=== PATIENT | female | born 1950 | race Caucasian/White ===

== ENCOUNTER 2024-04-22 07:00 | Day surgery (SDC) | payer MEDICARE, BC ==
[2024-04-17 14:36] LABS: BASOPHILS # (AUTO) 0.2 X10'3 (0-0.2); BASOPHILS % (AUTO) 1.9 % (0-1); EOSINOPHILS # (AUTO) 0.6 X10'3 (0-0.9); EOSINOPHILS % (AUTO) 6.3 % (0-6); LYMPHOCYTES # (AUTO) 2.3 X10'3 (1.1-4.8); LYMPHOCYTES % (AUTO) 24.6 % (21-51); MEAN CORPUSCULAR HEMOGLOBIN 31.1 PG (27.0-31.0); MEAN CORPUSCULAR HGB CONC 33.4 g/dL (33.0-36.5); MEAN CORPUSCULAR VOLUME 93.1 FL (78-98); MEAN PLATELET VOLUME 7.3 FL (7.4-10.4); MONOCYTES # (AUTO) 0.9 X10'3 (0-0.9); MONOCYTES % (AUTO) 9.5 % (2-12); NEUTROPHILS # (AUTO) 5.4 X10'3 (1.8-7.7); NEUTROPHILS % (AUTO) 57.7 % (42-75); PRE OP HEMATOCRIT 36.5 % (35.0-45.0); PRE OP HEMOGLOBIN 12.2 g/dL (12.0-16.0); PRE OP PLATELET COUNT 387 X10'3 (140-440); PRE OP WHITE BLOOD COUNT 9.3 10'3 (4.8-10.8); RED BLOOD COUNT 3.92 X10'6 (4.20-5.60); RED CELL DISTRIBUTION WIDTH 15.8 % (11.5-14.5)
[2024-04-17 14:51] LABS: ALBUMIN 3.1 G/DL (3.4-5.0); ALBUMIN/GLOBULIN RATIO 0.8 (1.1-1.5); ALKALINE PHOSPHATASE 94 IU/L (46-116); BLOOD UREA NITROGEN 24 MG/DL (7-18); BUN/CREATININE RATIO 19.5 (10.0-20.0); CHLORIDE 111 MMOL/L (99-107); CREATININE 1.23 MG/DL (0.40-0.90); PRE OP ALT 20 U/L (30-65); PRE OP ANION GAP 7 (8-16); PRE OP AST 16 U/L (10-37); PRE OP BILIRUB, TOTAL 0.5 MG/DL (0.0-1.0); PRE OP GLUCOSE 91 MG/DL (70-104); PRE OP POTASSIUM 4.3 MMOL/L (3.4-5.1); PRE OP SODIUM 145 MMOL/L (135-145); TOTAL CARBON DIOXIDE 27.2 MMOL/L (24-32); TOTAL PROTEIN 7.2 G/DL (6.4-8.2); eGFR 42 ML/MIN
[2024-04-22] VITALS (8 sets, daily range): BP systolic 124–153; BP diastolic 68–98; PULSE 65–83; RESP 12–17; TEMP 97.6; O2SAT 98
[~2024-04-22] VITALS: Ht 152.4 cm; Wt 71.2 kg
[~2024-04-22 07:00] MED LIST: ALEVE; ASCO-248; BUPIVAcaine/PF 2.5mg/ml (0.25%) 10ml vial ONE; CYAN500T46 PO; FEXO-310 PO; KEN0.1O TOP; LOSA50TA64 PO; MULT-1085 PO
[2024-04-22] MEDS ORDERED: acetaminophen 1,000mg/100ml IV 100 ML IV ONE (07:55)
[2024-04-22] MEDS ORDERED: proCHLORperazine 10 MG/2 ml inj IV PRN (07:55)
[2024-04-22] MEDS ORDERED: morphine 4 MG/ML inj SYRINge IV PRN (07:55)
[2024-04-22] MEDS ORDERED: ringers solution, lacted 1,000 ML IV SCH (07:55)
[2024-04-22] MEDS ORDERED: ondansetron/PF 4mg/2ml inj IV PRN (07:55)
[2024-04-22] MEDS ORDERED: morphine 2 MG/ML inj. syringe IV PRN (07:55)
[2024-04-22] MEDS ORDERED: meperidine/PF 25mg/ml syringe IV PRN ×3 (07:55)
[2024-04-22] MEDS: ringers solution, lacted 1,000 ML IV SCH (07:59)
[2024-04-22] MEDS: cefazolin 2gm/D5W 100mL 100 ML IV ONE (07:59)
[2024-04-22] MEDS: famotidine 20mg tablet PO ONE (08:00)
[2024-04-22] MEDS ORDERED: LIDOcaine 1% (10mg/ml)w/preservative inj. 20ml MDV ONE (08:11)
[2024-04-22] MEDS ORDERED: BUPIVAcaine/PF 2.5mg/ml (0.25%) 10ml vial ONE (08:11)
[2024-04-22] MEDS ORDERED: fentaNYL/PF 50MCG/1 ML 2ML syringe ONE (08:36)
[2024-04-22] MEDS: LIDOcaine 1% 30ml preserv. free vial IJ ONE (08:50)
[2024-04-22] MEDS ORDERED: propofol inj 20 ML IV ONE (08:55)
[2024-04-22] MEDS ORDERED: midazolam 1 mg/ML 2ml injection ONE (08:55)
== END 2024-04-22 10:04 | disposition home or self-care (01) ==
LOC: PRE-OP 07:00
PROVIDERS: ATTEND Orthopaedic Surgery Hand Surgery
DX: G56.01 Carpal tunnel syndrome, right upper limb (principal); M65.331 Trigger finger, right middle finger; I10 Essential (primary) hypertension; M19.90 Unspecified osteoarthritis, unspecified site; Z87.891 Personal history of nicotine dependence; Z85.118 Personal history of other malignant neoplasm of bronchus and lung; Z79.891 Long term (current) use of opiate analgesic; Z79.899 Other long term (current) drug therapy; Z90.2 Acquired absence of lung [part of]; Z88.1 Allergy status to other antibiotic agents; Z88.2 Allergy status to sulfonamides
CPT/HCPCS: 26055; 36415; 64721; 80053; 82948; 85025; A4215; A6449; J0690; J2250; J2704; J3010; J3490; J7030; J7120; Z7506; Z7512; Z7610